=== PATIENT | female | born 1930 | race Caucasian/White ===

== ENCOUNTER 2017-09-13 01:50 | Emergency (ER) | payer OTHER ==
[~2017-09-13] VITALS: Ht 162.6 cm; Wt 94.5 kg
[~2017-09-13 01:50] MED LIST: 8 HOUR PAIN RE650 M1 PO; ACIDOPHILUS LA1 EACH PO; ALUM-MAG HYDRO360 ML PO; AMLODIPINE BESYL5 MG PO; ANASTROZOLE1 MG PO; ANCEF,KEFZ2 GM/100 M IV; ARIMIDEX1 MG PO; ASPIRIN325 MG PO; ASPIRIN81 M2 PO; ATIVAN0.5 MG PO; BAYER CHEWABLE81 MG PO; BIOTENE1000 ML MM; BIOTIN 5000MCG PO; CALCIUM 500 MG1 EACH PO; CEFADROXIL PO; COUMADIN2 MG PO; COZAAR100 MG PO; CYCLOBENZAPRINE10 MG PO; CYMBALTA30 MG PO; DIGESTIVE PROB1 EACH PO; DITROPAN5 MG PO; DOXYCYCLINE HY100 M3 PO; DULCOLAX10 MG PR; DULOXETINE HCL30 MG PO; FERROUS SULFAT325 M2 PO; FERROUS SULFAT325 MG PO; FLORANEX CHE1 TABLET PO; GLIPIZIDE10 MG PO; GLUCAGEN1 MG IM/SC; GLUCOTROL10 MG PO; GLUTOSE 1537.5 GM PO; HUMALOG100 UNIT/2 SC; IPRATR-ALBUTEROL3 ML IH; IRON325 M1 PO; LEVOTHYROXINE25 MCG PO; LIPITOR20 MG PO; LOSARTAN POTAS100 MG PO; LOVENOX40 MG/0.4 SC; MAG-AL PLUS SUS30 ML PO; MEGA RED KRILL PO; MERIBIN5 MG PO; MILK OF MAGNESI10 ML PO; MYRBETRIQ25 MG PO; MYRBETRIQ50 MG PO; NORVASC10 MG PO; NORVASC5 MG PO; NOVOLOG PE100 UNITS/ SC; OXYBUTYNIN PO; OXYCODONE HCL5 MG PO; OYSTERCAL-D 501 EACH PO; PLAVIX75 MG PO; PRAVASTATIN SOD40 MG PO; PRAVASTATIN SOD80 MG PO; QUETIAPINE FUMA25 MG PO; SENNA PLUS TAB1 EACH PO; SENNA-TIME S T1 EACH PO; SERTRALINE HCL50 MG PO; SYNTHROID25 MCG PO; THERA-M1 EACH PO; THERAGRAN1 TABLET PO; TYLENOL REGULA325 MG PO; ZOLOFT50 MG PO; [UNRECOGNIZED DRUG - OTHER] PO
[2017-09-13 05:23] VITALS: BP 128/61
== END 2017-09-13 05:31 | disposition home or self-care (01) ==
LOC: EME → EDBD 01:50 → EME 01:50
DX: S00.03XA Contusion of scalp, initial encounter (principal); W01.0XXA Fall on same level from slipping, tripping and stumbling without subsequent striking against object, initial encounter; Y93.01 Activity, walking, marching and hiking; Y92.098 Other place in other non-institutional residence as the place of occurrence of the external cause; I10 Essential (primary) hypertension; E11.9 Type 2 diabetes mellitus without complications; E78.5 Hyperlipidemia, unspecified; F32.9 Major depressive disorder, single episode, unspecified; Z79.02 Long term (current) use of antithrombotics/antiplatelets; Z79.82 Long term (current) use of aspirin; Z79.84 Long term (current) use of oral hypoglycemic drugs; Z90.10 Acquired absence of unspecified breast and nipple; Z90.49 Acquired absence of other specified parts of digestive tract; Z96.641 Presence of right artificial hip joint; Z85.9 Personal history of malignant neoplasm, unspecified; Z88.1 Allergy status to other antibiotic agents; Z88.5 Allergy status to narcotic agent; Z88.0 Allergy status to penicillin; Z88.8 Allergy status to other drugs, medicaments and biological substances
CPT/HCPCS: 70450; 99281; 99285